=== PATIENT | female | born 1970 | race Two or more races ===

== ENCOUNTER → 2025-01-09 | Outpatient (CLI) | payer MEDICAID, SELFPAY ==
--- NOTE | 2025-01-09 10:11 | XR_ITS ---
Examination: Knee bilateral, 6 views Technique: Knee AP, lateral, oblique each knee total 6 views Date and time of exam: January 09, 2025 1001 hrs. Indications: Bilateral knee pain beginning one year ago. Findings: Mild osteopenia. Mild osteoarthritis medial patellofemoral joints bilaterally No fractures Impression: Mild osteoarthritis as above
--- NOTE | 2025-01-09 10:11 | XR_ITS ---
Examination: Thoracic spine 3 views Technique: AP lateral coned lateral upper dorsal spine 3 views Exam date and time: January 09, 2025 10:27 PM Indications: Upper back pain beginning 3 years ago Findings: No thoracic fracture Mild diffuse thoracic disc narrowing Mild thoracic spondylosis Impression: Mild diffuse thoracic degenerative disc disease
== END | disposition home or self-care (01) ==
PROVIDERS: PCP Nurse Practitioner Family; Referring Provider Nurse Practitioner Family; Visit Provider Nurse Practitioner Family
DX: M51.34 Other intervertebral disc degeneration, thoracic region (principal); M17.0 Bilateral primary osteoarthritis of knee
CPT/HCPCS: 72072; 73562

== ENCOUNTER → 2025-02-28 | Outpatient (CLI) | payer MEDICAID, SELFPAY ==
--- NOTE | 2025-02-28 14:15 | XR_ITS ---
Examination: Screening digital mammography, bilateral Computer aided detection 3-D breast Tomosynthesis, bilateral Date and time of exam: February 28, 2025 1417 hours Compared to July 18, 2012 Indication: Screening Technique: Nonmagnified MLO, CC views of the breasts to been obtained, reconstructed from 3-D Tomosynthesis images. R2 computer aided detection program utilized for evaluation of suspicious masses and/or abnormal calcifications. 3-D Tomosynthesis images obtained. Findings: The breasts are heterogeneously dense, which may obscure small masses Benign calcifications. No interval suspicious masses Impression: BI-RADS category II: Benign Findings. Recommend 1 year follow-up mammogram.
== END | disposition home or self-care (01) ==
LOC: CDIM 14:07
PROVIDERS: Referring Provider Nurse Practitioner Family; Visit Provider Nurse Practitioner Family
DX: Z12.31 Encounter for screening mammogram for malignant neoplasm of breast (principal); R92.323 Mammographic fibroglandular density, bilateral breasts; R92.1 Mammographic calcification found on diagnostic imaging of breast
CPT/HCPCS: 77063; 77067

== ENCOUNTER → 2025-06-21 | Outpatient (CLI) | payer MEDICAID, SELFPAY ==
--- NOTE | 2025-06-21 15:00 | XR_ITS ---
Examination: CT middle inner ear, without contrast. 2-D coronal reconstructions. 2-D sagittal reconstructions. Date and time of exam: June 21, 2025 1528 hours INDICATIONS: Headaches several months CTDI: vol (mGy): 15.3 DLP: (mGycm):145 Technique: Multiple 1.0 mm axial sections of the middle inner ears bilaterally. High-resolution 64 slice scanner utilized. 2-D coronal reconstructions 2-D sagittal reconstructions Low dose protocols were performed. One or more of the following dose reduction techniques were used; automated exposure control, adjustment of the mA and/or KV according to patient size, use of iterative reconstruction technique. Findings: Axial sections of the right demonstrate mildly reduced mastoid aeration. Jugular fossa and carotid canal do not appear remarkable. No deformity of the ossicles. Porus acusticus internus does not exhibit erosion. Cochlear apparatus unremarkable. Semicircular canals normal. External auditory canal open. Coronal reconstructions demonstrate no erosion of the scutum. No soft tissue mass in the attic or Prussak's space is seen. Ossicular mass intact. Axial sections of the left demonstrate mildly reduced mastoid aeration. Jugular fossa and carotid canal do not appear remarkable. No deformity of the ossicles. Porus acusticus internus does not exhibit erosion. Cochlear apparatus unremarkable. Semicircular canals normal. External auditory canal open Coronal reconstructions demonstrate no erosion of the scutum. No soft tissue mass in the attic or Prussak's space is seen. Ossicular mass intact. Roof of the mastoid air cells appear intact bilaterally. Impression: Mild bilateral chronic mastoiditis Negative for acute mastoiditis Negative for otitis media, negative for otitis externa Symmetrical internal auditory canals Mild chronic ethmoid sinusitis
== END | disposition home or self-care (01) ==
PROVIDERS: PCP Nurse Practitioner Family; Referring Provider Nurse Practitioner Family; Visit Provider Nurse Practitioner Family
DX: H70.13 Chronic mastoiditis, bilateral (principal); J32.2 Chronic ethmoidal sinusitis
CPT/HCPCS: 70480

== ENCOUNTER → 2025-07-11 | Outpatient (CLI) | payer MEDICAID, SELFPAY ==
--- NOTE | 2025-07-11 | XR_ITS ---
Examination: Knee bilateral, 6 views Technique: Knee AP, lateral, oblique each knee total 6 views Date and time of exam: July 11, 2025, 1259 hours INDICATIONS: Patient fell 1 month ago with injury to the knees, knee pain FINDINGS: No fracture or dislocation Mild narrowing medial patellofemoral joints No foreign bodies IMPRESSION: No fracture or dislocation
--- NOTE | 2025-07-11 | XR_ITS ---
EXAMINATION: Bilateral ankles 4 views TECHNIQUE: AP lateral right and left ankles 4 views Date and time: July 11, 2025, 1304 hours INDICATIONS: Patient fell 1 month ago with injury to both ankles, bilateral ankle pain. FINDINGS: No fracture or dislocation involving either ankle Small plantar posterior right bony calcaneal spurs IMPRESSION: No fracture or dislocation involving either ankle
--- NOTE | 2025-07-11 | XR_ITS ---
EXAMINATION: Lumbar spine 3 views TECHNIQUE: AP lateral, lateral lower lumbar spine 3 views Date and time: July 11, 2025, 1315 hours INDICATIONS: Patient fell 1 month ago with injury to lower back, lower back pain. FINDINGS: Grade 1 anterolisthesis L4 on L5 Moderate disc narrowing L4-L5. No lumbar fracture. Mild lumbar spondylosis IMPRESSION: No lumbar fracture Moderate degenerative disc disease L4-L5
--- NOTE | 2025-07-11 12:41 | XR_ITS ---
EXAMINATION: Thoracic spine 3 views TECHNIQUE: AP lateral: Lateral upper dorsal spine 3 views Date and time: July 11, 2025, 1314 hours, comparison January 09, 2025 INDICATIONS: Patient fell last month with injury to the back, mid back pain FINDINGS: Moderate osteopenia Minimal thoracic levoscoliosis No acute thoracic fracture Mild diffuse thoracic disc narrowing IMPRESSION: No acute thoracic fracture
== END | disposition home or self-care (01) ==
LOC: CDIM 12:17
PROVIDERS: PCP Nurse Practitioner Family; Referring Provider Family Medicine; Visit Provider Family Medicine
DX: S29.9XXA Unspecified injury of thorax, initial encounter (principal); S99.912A Unspecified injury of left ankle, initial encounter; S99.911A Unspecified injury of right ankle, initial encounter; S89.92XA Unspecified injury of left lower leg, initial encounter; S89.91XA Unspecified injury of right lower leg, initial encounter; S39.92XA Unspecified injury of lower back, initial encounter; W19.XXXA Unspecified fall, initial encounter; M51.360 Other intervertebral disc degeneration, lumbar region with discogenic back pain only
CPT/HCPCS: 72070; 72100; 73562; 73600